=== PATIENT | female | born 1940 | race Caucasian/White ===

== ENCOUNTER 2018-07-10 12:01 | Inpatient (IN) | payer OTHER ==
[~2018-07-10] VITALS: Ht 147.3 cm; Wt 47.4 kg
[2018-07-10 12:14] VITALS: Ht 147.3 cm; Wt 47.4 kg
[2018-07-10 12:27] LABS: BASOPHIL % 0.1 % (0-2); PLATELET COUNT 165 x10^3mcL (130-400)
[2018-07-10 12:30] LABS: CALCIUM 9.8 mg/dL (8.5-10.1); CHLORIDE SERUM 105 mmol/L (98-107); CREATININE SERUM 0.6 mg/dL (0.6-1.0); GLUCOSE SERUM 113 mg/dL (74-106); POTASSIUM SERUM 3.2 mmol/L (3.5-5.1); SODIUM SERUM 142 mmol/L (136-145)
[2018-07-10] MEDS ORDERED: PLA200 PO (15:44)
[2018-07-10] MEDS ORDERED: BUSPAR5 MG PO (15:44)
[2018-07-10] MEDS ORDERED: NAMENDA XR14 MG PO (15:45)
[2018-07-10] MEDS ORDERED: SULFAZINE500 MG PO (15:45)
[2018-07-10] MEDS ORDERED: RIVASTIGMINE T1.5 M1 PO (15:45)
[2018-07-10] MEDS ORDERED: EPZICOM1 TAB (15:46)
[2018-07-10] MEDS ORDERED: TIROSINT112 MCG PO (15:46)
[2018-07-10] MEDS ORDERED: SYNTHROID0.112 MG GT (15:46)
[2018-07-10 16:38] VITALS: BP 186/90
[2018-07-10 16:58] LABS: CHOLESTEROL/HDL RATIO 2.5
[2018-07-10 17:11] LABS: T3 TOTAL 0.72 ng/mL
[2018-07-10 17:14] LABS: FREE T4 1.52 ng/dL (0.76-1.46); FREE THYROXINE INDEX 4.2 ug/dL (1.4-4.5); T4(THYROXINE) 12.1 ug/dL (4.7-13.3)
[2018-07-10 20:33] VITALS: BP 156/55
[2018-07-11] VITALS (14 sets, daily range): BP systolic 131–173; BP diastolic 55–92
[2018-07-11 00:06] LABS: UA SPECIFIC GRAVITY >=1.030 (1.005-1.035); microscopic required? YES; urine erythrocyte 1+ (NEGATIVE)
[2018-07-11 00:22] LABS: AMPHETAMINE QUAL UR NONE DETECTED (See below)
[2018-07-11 05:45] LABS: BASOPHIL % 0.3 % (0-2); PLATELET COUNT 167 x10^3mcL (130-400); RED CELL DISTRIBUTION WIDTH 13.6 % (11.5-14.5)
[2018-07-11 06:17] LABS: CALCIUM 9.3 mg/dL (8.5-10.1); CARBON DIOXIDE 27.8 mmol/L (21-32); CHLORIDE SERUM 108 mmol/L (98-107); CREATININE SERUM 0.7 mg/dL (0.6-1.0); GLUCOSE SERUM 112 mg/dL (74-106); SODIUM SERUM 145 mmol/L (136-145)
[2018-07-11 17:58] LABS: APPEARANCE CSF CLEAR; COLOR CSF COLORLESS; LYMPHOCYTE CSF 0 % (40-80); MONOCYTE CSF 0 %; RBC CSF 149 /cumm (0); WBC CSF 3 /cumm (0-5)
[2018-07-12 05:37] VITALS: BP 171/70
[2018-07-12 07:42] LABS: CALCIUM 9.5 mg/dL (8.5-10.1); CARBON DIOXIDE 26.2 mmol/L (21-32); CHLORIDE SERUM 107 mmol/L (98-107); CREATININE SERUM 0.7 mg/dL (0.6-1.0); GLUCOSE SERUM 111 mg/dL (74-106); POTASSIUM SERUM 3.5 mmol/L (3.5-5.1); SODIUM SERUM 143 mmol/L (136-145)
[2018-07-12 07:56] LABS: BASOPHIL % 0.4 % (0-2); PLATELET COUNT 179 x10^3mcL (130-400); RED CELL DISTRIBUTION WIDTH 13.6 % (11.5-14.5)
[2018-07-12 10:17] VITALS: BP 144/103
[2018-07-12 12:48] VITALS: BP 174/70
[2018-07-12 14:00] VITALS: BP 168/85
[2018-07-12 17:11] VITALS: BP 104/59
[2018-07-12 21:31] VITALS: BP 155/77
[2018-07-13 06:51] VITALS: BP 163/72
[2018-07-13 09:08] LABS: BASOPHIL % 0.4 % (0-2); PLATELET COUNT 198 x10^3mcL (130-400); RED CELL DISTRIBUTION WIDTH 13.3 % (11.5-14.5)
[2018-07-13 09:12] LABS: CALCIUM 9.9 mg/dL (8.5-10.1); CARBON DIOXIDE 24.9 mmol/L (21-32); CHLORIDE SERUM 104 mmol/L (98-107); CREATININE SERUM 0.6 mg/dL (0.6-1.0); GLUCOSE SERUM 112 mg/dL (74-106); PHOSPHOROUS 3.6 mg/dL (2.5-4.9); POTASSIUM SERUM 3.7 mmol/L (3.5-5.1); SODIUM SERUM 140 mmol/L (136-145)
[2018-07-13 09:35] VITALS: BP 150/63
[2018-07-13 13:03] VITALS: BP 164/76
[2018-07-13 16:18] VITALS: BP 137/71
[2018-07-13 17:39] VITALS: BP 125/47
[2018-07-13 20:47] VITALS: BP 146/62
[2018-07-14 05:35] VITALS: BP 148/70
[2018-07-14 08:55] VITALS: BP 146/77
[2018-07-14 09:36] LABS: BASOPHIL % 0.3 % (0-2); PLATELET COUNT 202 x10^3mcL (130-400); RED CELL DISTRIBUTION WIDTH 13.6 % (11.5-14.5)
[2018-07-14 12:21] VITALS: BP 157/68
[2018-07-14 16:29] VITALS: BP 153/62
[2018-07-14 19:10] VITALS: BP 32/49
[2018-07-15 05:45] VITALS: BP 148/80
[2018-07-15 05:45] LABS: BASOPHIL % 0.6 % (0-2); PLATELET COUNT 203 x10^3mcL (130-400); RED CELL DISTRIBUTION WIDTH 13.5 % (11.5-14.5)
[2018-07-15 06:13] LABS: CALCIUM 9.3 mg/dL (8.5-10.1); CARBON DIOXIDE 28.1 mmol/L (21-32); CHLORIDE SERUM 104 mmol/L (98-107); CREATININE SERUM 0.6 mg/dL (0.6-1.0); GLUCOSE SERUM 108 mg/dL (74-106); POTASSIUM SERUM 3.9 mmol/L (3.5-5.1); SODIUM SERUM 138 mmol/L (136-145)
[2018-07-15 07:45] VITALS: BP 157/84
[2018-07-15] MEDS ORDERED: ZESTRIL40 MG PO (14:58)
[2018-07-15] MEDS ORDERED: HYDRALAZINE HCL25 MG PO (14:59)
[2018-07-15 15:06] VITALS: BP 140/80
== END 2018-07-15 16:05 | DRG 73 ==
LOC: ED 12:01 → MU 15:15 → DU 15:15 → MU 16:17 → DU 07-11 05:11
PROVIDERS: Emergency Medicine; Family Medicine
DX: G90.9 Disorder of the autonomic nervous system, unspecified (principal); N17.0 Acute kidney failure with tubular necrosis; G30.9 Alzheimer's disease, unspecified; F02.80 Dementia in other diseases classified elsewhere, unspecified severity, without behavioral disturbance, psychotic disturbance, mood disturbance, and anxiety; M19.90 Unspecified osteoarthritis, unspecified site; R54 Age-related physical debility; E03.9 Hypothyroidism, unspecified; E78.5 Hyperlipidemia, unspecified; E87.6 Hypokalemia; I16.0 Hypertensive urgency; Z68.22 Body mass index [BMI] 22.0-22.9, adult
CPT/HCPCS: 62272; 83880; 84439; 97110-GP; J1630; Q0092

== ENCOUNTER 2019-07-17 15:05 | Inpatient (IN) | payer OTHER ==
[~2019-07-17] VITALS: Ht 152.4 cm; Wt 54.5 kg
[~2019-07-17 15:05] MED LIST: BUSPAR5 MG PO; EPZICOM1 TAB; HYDRALAZINE HCL25 MG PO; NAMENDA XR14 MG PO; PLA200 PO; RIVASTIGMINE T1.5 M1 PO; SULFAZINE500 MG PO; SYNTHROID0.112 MG GT; TIROSINT112 MCG PO; ZESTRIL40 MG PO
[2019-07-17 16:56] LABS: PLATELET COUNT 150 x10^3mcL (130-400); RED CELL DISTRIBUTION WIDTH 12.4 % (11.5-14.5)
[2019-07-17 16:57] LABS: BASOPHIL % 0 % (0-2)
[2019-07-17 17:11] LABS: CARBON DIOXIDE 25.5 mmol/L (21-32); CHLORIDE SERUM 106 mmol/L (98-107); CREATININE SERUM 0.6 mg/dL (0.6-1.0); GLUCOSE SERUM 130 mg/dL (74-106); POTASSIUM SERUM 4.3 mmol/L (3.5-5.1); SODIUM SERUM 141 mmol/L (136-145)
[2019-07-17 17:24] LABS: ALKALINE PHOSPHATASE 90 U/L (46-116); ALT/SGPT 28 U/L (14-59); AST/SGOT 23 U/L (15-37); BILIRUBIN TOTAL 0.55 mg/dL (0.20-1.00); HDL CHOLESTEROL 48 mg/dL (40-60); LIPASE 54 IU/L (73-393); MAGNESIUM 1.9 mg/dL (1.8-2.4); TOTAL PROTEIN, SERUM 6.7 g/dL (6.4-8.2)
[2019-07-17 17:25] LABS: ALBUMIN 2.8 g/dL (3.4-5.0); CHOLESTEROL 128 mg/dL (<200)
[2019-07-17 17:29] LABS: microscopic required? NO
[2019-07-17 17:38] LABS: UA SPECIFIC GRAVITY <=1.005 (1.005-1.035); urine erythrocyte NEGATIVE (NEGATIVE)
[2019-07-17 19:09] VITALS: BP 108/65
[2019-07-17] MEDS ORDERED: FUROSEMIDE20 MG PO (19:23)
[2019-07-17] MEDS ORDERED: SPIRONOLACTONE25 MG PO (19:24)
[2019-07-17] MEDS ORDERED: OLANZAPINE10 MG PO (19:25)
[2019-07-17] MEDS ORDERED: LOSARTAN POTASS50 M1 PO (19:25)
[2019-07-17] MEDS ORDERED: SYNTHROID0.112 MG PO (19:25)
[2019-07-17 19:45] LABS: AMPHETAMINE QUAL UR NONE DETECTED (See below)
[2019-07-17 20:25] VITALS: BP 130/62
[2019-07-18 05:03] VITALS: BP 118/44
[2019-07-18 06:35] LABS: BASOPHIL % 0.2 % (0-2); PLATELET COUNT 134 x10^3mcL (130-400); RED CELL DISTRIBUTION WIDTH 12.9 % (11.5-14.5)
[2019-07-18 07:29] LABS: CALCIUM 8.8 mg/dL (8.5-10.1); CARBON DIOXIDE 25.8 mmol/L (21-32); CHLORIDE SERUM 110 mmol/L (98-107); CREATININE SERUM 0.6 mg/dL (0.6-1.0); GLUCOSE SERUM 103 mg/dL (74-106); MAGNESIUM 1.8 mg/dL (1.8-2.4); SODIUM SERUM 144 mmol/L (136-145)
[2019-07-18 08:05] VITALS: BP 127/50
[2019-07-18 12:01] VITALS: BP 120/53
[2019-07-18 16:48] VITALS: BP 109/42
[2019-07-18 20:18] VITALS: BP 101/72
[2019-07-19 04:35] VITALS: BP 112/61
[2019-07-19 06:17] LABS: BASOPHIL % 0.3 % (0-2); PLATELET COUNT 139 x10^3mcL (130-400); RED CELL DISTRIBUTION WIDTH 12.6 % (11.5-14.5)
[2019-07-19 06:27] LABS: CALCIUM 9.1 mg/dL (8.5-10.1); CARBON DIOXIDE 25.1 mmol/L (21-32); CHLORIDE SERUM 111 mmol/L (98-107); CREATININE SERUM 0.5 mg/dL (0.6-1.0); GLUCOSE SERUM 104 mg/dL (74-106); PHOSPHOROUS 2.3 mg/dL (2.5-4.9); POTASSIUM SERUM 4.1 mmol/L (3.5-5.1); SODIUM SERUM 146 mmol/L (136-145)
[2019-07-19 07:54] VITALS: BP 147/64
[2019-07-19 11:54] VITALS: BP 140/66
[2019-07-19 16:13] VITALS: BP 129/63
[2019-07-19 19:45] VITALS: BP 144/70
[2019-07-20 03:56] VITALS: BP 156/56
[2019-07-20 06:22] LABS: CALCIUM 8.5 mg/dL (8.5-10.1); CHLORIDE SERUM 108 mmol/L (98-107); CREATININE SERUM 0.5 mg/dL (0.6-1.0); GLUCOSE SERUM 133 mg/dL (74-106); MAGNESIUM 1.6 mg/dL (1.8-2.4); PHOSPHOROUS 2.4 mg/dL (2.5-4.9); SODIUM SERUM 142 mmol/L (136-145)
[2019-07-20 06:48] LABS: BASOPHIL % 0.2 % (0-2); PLATELET COUNT 155 x10^3mcL (130-400); RED CELL DISTRIBUTION WIDTH 12.4 % (11.5-14.5)
[2019-07-20 08:08] VITALS: BP 170/82
[2019-07-20 11:48] VITALS: BP 131/75
[2019-07-20] MEDS ORDERED: LEVAQUIN750 MG PO (15:25)
[2019-07-20] MEDS ORDERED: BACOO OS (15:28)
[2019-07-20] MEDS ORDERED: MUCINEX600 MG PO (15:29)
[2019-07-20 15:49] VITALS: BP 131/75
[2019-07-20] MEDS ORDERED: MUPIROCIN2% TOP (16:41)
[2019-07-20 21:27] VITALS: BP 153/86
[2019-07-21 05:00] VITALS: BP 158/75
[2019-07-21 08:37] LABS: PLATELET COUNT 166 x10^3mcL (130-400); RED CELL DISTRIBUTION WIDTH 12.5 % (11.5-14.5)
[2019-07-21 08:40] VITALS: BP 121/51
[2019-07-21 08:47] LABS: BASOPHIL % 0 % (0-2)
[2019-07-21 09:04] LABS: CALCIUM 8.8 mg/dL (8.5-10.1); CARBON DIOXIDE 28.2 mmol/L (21-32); CHLORIDE SERUM 106 mmol/L (98-107); CREATININE SERUM 0.5 mg/dL (0.6-1.0); GLUCOSE SERUM 151 mg/dL (74-106); POTASSIUM SERUM 4.3 mmol/L (3.5-5.1); SODIUM SERUM 141 mmol/L (136-145)
[2019-07-21 09:30] VITALS: Ht 152.4 cm; Wt 54.5 kg
[2019-07-21 12:57] VITALS: BP 157/54
[2019-07-21 15:59] VITALS: BP 157/54
[2019-07-21 16:27] VITALS: BP 144/78
[2019-07-21 20:55] VITALS: BP 170/86
[2019-07-22 05:50] VITALS: BP 149/84
[2019-07-22 06:34] LABS: BASOPHIL % 0.2 % (0-2); PLATELET COUNT 173 x10^3mcL (130-400); RED CELL DISTRIBUTION WIDTH 12.5 % (11.5-14.5)
[2019-07-22 07:06] LABS: CALCIUM 8.9 mg/dL (8.5-10.1); CARBON DIOXIDE 25.8 mmol/L (21-32); CHLORIDE SERUM 107 mmol/L (98-107); CREATININE SERUM 0.5 mg/dL (0.6-1.0); GLUCOSE SERUM 99 mg/dL (74-106); MAGNESIUM 1.9 mg/dL (1.8-2.4); SODIUM SERUM 140 mmol/L (136-145)
[2019-07-22 07:59] VITALS: BP 155/64
[2019-07-22 16:32] VITALS: BP 121/65
[2019-07-22 20:31] VITALS: BP 145/70
[2019-07-23 04:36] VITALS: BP 155/68
[2019-07-23 06:08] LABS: BASOPHIL % 0.3 % (0-2); PLATELET COUNT 204 x10^3mcL (130-400); RED CELL DISTRIBUTION WIDTH 12.3 % (11.5-14.5)
[2019-07-23 06:22] LABS: CALCIUM 9.1 mg/dL (8.5-10.1); CARBON DIOXIDE 25.5 mmol/L (21-32); CHLORIDE SERUM 107 mmol/L (98-107); CREATININE SERUM 0.5 mg/dL (0.6-1.0); GLUCOSE SERUM 116 mg/dL (74-106); POTASSIUM SERUM 3.5 mmol/L (3.5-5.1); SODIUM SERUM 141 mmol/L (136-145)
[2019-07-23 08:02] VITALS: BP 119/53
[2019-07-23 08:03] VITALS: BP 147/61
[2019-07-23 12:06] VITALS: BP 157/85
[2019-07-23 16:19] VITALS: BP 136/68
[2019-07-23 19:21] VITALS: BP 158/82
[2019-07-24 04:42] VITALS: BP 164/71
[2019-07-24 06:57] LABS: CALCIUM 8.8 mg/dL (8.5-10.1); CARBON DIOXIDE 25.8 mmol/L (21-32); CHLORIDE SERUM 107 mmol/L (98-107); CREATININE SERUM 0.5 mg/dL (0.6-1.0); GLUCOSE SERUM 108 mg/dL (74-106); POTASSIUM SERUM 3.1 mmol/L (3.5-5.1); SODIUM SERUM 141 mmol/L (136-145)
[2019-07-24 07:10] LABS: BASOPHIL % 0.3 % (0-2); PLATELET COUNT 233 x10^3mcL (130-400); RED CELL DISTRIBUTION WIDTH 12.5 % (11.5-14.5)
[2019-07-24 07:34] VITALS: BP 117/81
[2019-07-24 16:45] VITALS: BP 182/86
[2019-07-24 20:42] VITALS: BP 162/77
[2019-07-24 22:10] VITALS: BP 147/76
[2019-07-25 04:56] VITALS: BP 133/64
[2019-07-25 06:36] LABS: CALCIUM 9.1 mg/dL (8.5-10.1); CARBON DIOXIDE 24.5 mmol/L (21-32); CHLORIDE SERUM 107 mmol/L (98-107); CREATININE SERUM 0.4 mg/dL (0.6-1.0); GLUCOSE SERUM 107 mg/dL (74-106); POTASSIUM SERUM 3.5 mmol/L (3.5-5.1); SODIUM SERUM 140 mmol/L (136-145)
[2019-07-25 06:38] LABS: BASOPHIL % 0.4 % (0-2); PLATELET COUNT 251 x10^3mcL (130-400); RED CELL DISTRIBUTION WIDTH 12.8 % (11.5-14.5)
[2019-07-25 08:18] VITALS: BP 141/85
[2019-07-25 16:29] VITALS: BP 160/79
[2019-07-25 21:04] VITALS: BP 141/68
[2019-07-26 05:01] VITALS: BP 155/66
[2019-07-26 07:11] LABS: BASOPHIL % 0.5 % (0-2); PLATELET COUNT 258 x10^3mcL (130-400); RED CELL DISTRIBUTION WIDTH 12.6 % (11.5-14.5)
[2019-07-26 07:46] LABS: CALCIUM 8.6 mg/dL (8.5-10.1); CARBON DIOXIDE 24.2 mmol/L (21-32); CHLORIDE SERUM 108 mmol/L (98-107); CREATININE SERUM 0.4 mg/dL (0.6-1.0); GLUCOSE SERUM 71 mg/dL (74-106); POTASSIUM SERUM 3.5 mmol/L (3.5-5.1); SODIUM SERUM 143 mmol/L (136-145)
[2019-07-26 09:05] VITALS: BP 145/80
[2019-07-26 16:22] VITALS: BP 135/74
[2019-07-26 20:22] VITALS: BP 138/66
[2019-07-27 05:02] VITALS: BP 151/77
[2019-07-27 06:26] LABS: BASOPHIL % 0.4 % (0-2); PLATELET COUNT 295 x10^3mcL (130-400); RED CELL DISTRIBUTION WIDTH 12.4 % (11.5-14.5)
[2019-07-27 06:38] LABS: CALCIUM 8.6 mg/dL (8.5-10.1); CARBON DIOXIDE 26.4 mmol/L (21-32); CHLORIDE SERUM 111 mmol/L (98-107); CREATININE SERUM 0.5 mg/dL (0.6-1.0); GLUCOSE SERUM 138 mg/dL (74-106); POTASSIUM SERUM 3.6 mmol/L (3.5-5.1); SODIUM SERUM 145 mmol/L (136-145)
[2019-07-27 08:56] VITALS: BP 149/86
[2019-07-27 15:08] VITALS: BP 131/75
[2019-07-29] MEDS ORDERED: LOSARTAN POTASS50 M1 PO (15:38)
[2019-07-29] MEDS ORDERED: SPIRONOLACTONE25 MG PO (15:38)
[2019-07-29] MEDS ORDERED: OLANZAPINE10 MG PO (15:38)
[2019-07-29] MEDS ORDERED: LEVAQUIN750 MG PO (16:13)
[2019-07-29] MEDS ORDERED: MUCINEX600 MG PO (16:13)
== END 2019-07-27 16:05 | disposition home health service (06) | DRG 853 ==
LOC: ED 15:05 → DU 18:55 → MU 18:55 → EDBD 18:55 → DU 19:55 → MU 07-21 11:27
PROVIDERS: Emergency Medicine; General Practice; ADMIT Internal Medicine
PROC: 0DP64UZ Removal of Feeding Device from Stomach, Percutaneous Endoscopic Approach (ICD-10-PCS; principal; 2019-07-22)
PROC: 0DH63UZ Insertion of Feeding Device into Stomach, Percutaneous Approach (ICD-10-PCS; 2019-07-22)
PROC: 0DHA3UZ Insertion of Feeding Device into Jejunum, Percutaneous Approach (ICD-10-PCS; 2019-07-24)
DX: A41.9 Sepsis, unspecified organism (principal); J69.0 Pneumonitis due to inhalation of food and vomit; R53.2 Functional quadriplegia; E43 Unspecified severe protein-calorie malnutrition; K25.0 Acute gastric ulcer with hemorrhage; K94.22 Gastrostomy infection; L03.311 Cellulitis of abdominal wall; Z68.1 Body mass index [BMI] 19.9 or less, adult; K94.21 Gastrostomy hemorrhage; E86.0 Dehydration; E03.9 Hypothyroidism, unspecified; D63.8 Anemia in other chronic diseases classified elsewhere; G30.9 Alzheimer's disease, unspecified; F02.80 Dementia in other diseases classified elsewhere, unspecified severity, without behavioral disturbance, psychotic disturbance, mood disturbance, and anxiety; Z99.3 Dependence on wheelchair; Z99.81 Dependence on supplemental oxygen; Y83.3 Surgical operation with formation of external stoma as the cause of abnormal reaction of the patient, or of later complication, without mention of misadventure at the time of the procedure; Y92.009 Unspecified place in unspecified non-institutional (private) residence as the place of occurrence of the external cause
CPT/HCPCS: 36600; 43235; 82962; 83880; 87804; 90658; 94150; C9113; G0378; J0295; J1170; J1200; J1610; J1940; J2250; J2270; J2310; J2543; J2765; J3010; J3370; J3480; J3490; J7030; J7040; J7042; J7050; J7620